=== PATIENT | male | born 2005 | race Caucasian/White ===

== ENCOUNTER 2025-03-28 08:03 | Outpatient (CLI) | payer BC | END 2025-03-28 08:04 | disposition home or self-care (01) | LOC: CSHWCC 08:03 | PROVIDERS: ATTEND Nurse Practitioner Family | DX: L05.91 Pilonidal cyst without abscess (principal) | CPT/HCPCS: 99213; G0463 ==

== ENCOUNTER 2025-03-30 08:33 | Outpatient (CLI) | payer BC | END 2025-03-30 08:34 | disposition home or self-care (01) | LOC: CSHWCC 08:33 | PROVIDERS: ATTEND Nurse Practitioner Family | DX: L05.91 Pilonidal cyst without abscess (principal) | CPT/HCPCS: 99213; G0463 ==

== ENCOUNTER 2025-04-03 10:11 | Outpatient (CLI) | payer BC | END 2025-04-03 10:12 | disposition home or self-care (01) | LOC: CSHWCC 10:11 | PROVIDERS: ATTEND Nurse Practitioner Family | DX: L05.91 Pilonidal cyst without abscess (principal); L08.9 Local infection of the skin and subcutaneous tissue, unspecified | CPT/HCPCS: 11042 ==

== ENCOUNTER 2025-04-14 08:50 | Outpatient (CLI) | payer BC | END 2025-04-14 08:51 | disposition home or self-care (01) | LOC: CSHWCC 08:50 | PROVIDERS: ATTEND Nurse Practitioner Family | DX: L05.91 Pilonidal cyst without abscess (principal); L08.9 Local infection of the skin and subcutaneous tissue, unspecified | CPT/HCPCS: 99211; G0463 ==

== ENCOUNTER 2025-04-18 08:25 | Outpatient (CLI) | payer BC | END 2025-04-18 08:26 | disposition home or self-care (01) | LOC: CSHWCC 08:25 | PROVIDERS: ATTEND Nurse Practitioner Family | DX: L05.91 Pilonidal cyst without abscess (principal); L08.9 Local infection of the skin and subcutaneous tissue, unspecified | CPT/HCPCS: 99213; G0463 ==

== ENCOUNTER 2025-04-28 10:16 | Outpatient (CLI) | payer BC | END 2025-04-28 10:17 | disposition home or self-care (01) | LOC: CSHWCC 10:16 | PROVIDERS: ATTEND Nurse Practitioner Family | DX: L05.91 Pilonidal cyst without abscess (principal) | CPT/HCPCS: 99211; G0463 ==

== ENCOUNTER 2025-06-01 08:59 | Outpatient (CLI) | payer BC | END 2025-06-01 09:00 | disposition home or self-care (01) | LOC: CSHWCC 08:59 | PROVIDERS: ATTEND Nurse Practitioner Family | DX: L05.91 Pilonidal cyst without abscess (principal) | CPT/HCPCS: 99211; G0463 ==

== ENCOUNTER 2025-06-05 08:42 | Outpatient (CLI) | payer BC | END 2025-06-05 08:43 | disposition home or self-care (01) | LOC: CSHWCC 08:42 | PROVIDERS: ATTEND Nurse Practitioner Family | DX: L05.91 Pilonidal cyst without abscess (principal) | CPT/HCPCS: 11042 ==

== ENCOUNTER 2025-06-12 10:10 | Outpatient (CLI) | payer BC | END 2025-06-12 10:11 | disposition home or self-care (01) | LOC: CSHWCC 10:10 | PROVIDERS: ATTEND Nurse Practitioner Family | DX: L05.91 Pilonidal cyst without abscess (principal) | CPT/HCPCS: 97597 ==

== ENCOUNTER 2025-06-19 11:09 | Outpatient (CLI) | payer BC | END 2025-06-19 11:10 | disposition home or self-care (01) | LOC: CSHWCC 11:09 | PROVIDERS: ATTEND Nurse Practitioner Family | DX: L05.91 Pilonidal cyst without abscess (principal) | CPT/HCPCS: 99212; G0463 ==

== ENCOUNTER 2025-07-03 08:50 | Outpatient (CLI) | payer BC | END 2025-07-03 08:51 | disposition home or self-care (01) | LOC: CSHWCC 08:50 | PROVIDERS: ATTEND Nurse Practitioner Family | DX: L05.91 Pilonidal cyst without abscess (principal) | CPT/HCPCS: 99213; G0463 ==